=== PATIENT | female | born 1940 | race Caucasian/White ===

== ENCOUNTER → 2017-11-04 | Outpatient (CLI) | payer MEDICARE ==
[~2017-11-04] MED LIST: ALLO300T; ALLO300T PO; ASPI-496 PO; ASPI-515; Benfotiamine PO; CHOL200024 PO; CYAN250013 PO; ESTR0.3T; ESTR0.3T PO; GINGER PO; LEVO25TA2 PO; MAGN250T8 PO; MAGN400C; METANEX; METO25TA35 PO; METO25TA91; OMEG-14 PO; TUMERIC PO; [UNRECOGNIZED DRUG - OTHER] PO
[2017-11-04 13:54] LABS: MICROSCOPIC NOT IND
[2017-11-04 13:59] LABS: CULTURE INDICATED? NO
== END | disposition home or self-care (01) ==
LOC: STAR 12:26
PROVIDERS: ATTEND Orthopaedic Surgery
DX: Z01.818 Encounter for other preprocedural examination (principal); M17.12 Unilateral primary osteoarthritis, left knee
CPT/HCPCS: 81003; 87081; 93005

== ENCOUNTER 2017-11-16 05:22 | Observation (INO) | payer MEDICARE ==
[2017-11-04 13:35] VITALS: BP 130/79
[~2017-11-16] VITALS: Ht 165.1 cm; Wt 74.7 kg
[2017-11-16] MEDS ORDERED: LACTATED RINGERS 1,000 ML IV SCH (06:11)
[2017-11-16] MEDS ORDERED: KETOROLAC 60 MG/2 ML ONE (06:12)
[2017-11-16] MEDS ORDERED: SODIUM CHLORIDE 0.9% 100 ML ONE (06:13)
[2017-11-16] MEDS ORDERED: EPINEPHRINE 1 MG/ML, 1ML ONE (06:13)
[2017-11-16] MEDS ORDERED: ROPIvacaine/PF 0.2%, 20 ML ONE (06:13)
[2017-11-16] MEDS ORDERED: VANCOMYCIN 1,000 MG ONE (06:13)
[2017-11-16] MEDS ORDERED: TRANEXAMIC ACID 100 MG/ML, 10ML ONE (06:13)
[2017-11-16] MEDS ORDERED: LIDOCAINE-MPF 1%, 2ML INFIL ONE (06:30)
[2017-11-16] MEDS ORDERED: MIDAZOLAM 1 MG/ML, 2ML ONE (06:31)
[2017-11-16] MEDS ORDERED: FENTANYL PF 100 MCG/2ML ONE (06:31)
[2017-11-16] MEDS ORDERED: PROPOFOL 50 ML ONE (06:31)
[2017-11-16] MEDS ORDERED: GABAPENTIN 300 MG CAPSULE PO ONE (07:00)
[2017-11-16] MEDS ORDERED: ACETAMINOPHEN 500 MG TABLET PO ONE (07:00)
[2017-11-16] MEDS ORDERED: ONDANSETRON ODT 8 MG PO ONE (07:00)
[2017-11-16] MEDS ORDERED: TAMSULOSIN 0.4 MG CAP.ER.24H PO ONE (07:00)
[2017-11-16] MEDS ORDERED: CEFAZOLIN 1,000 MG ONE (07:01)
[2017-11-16] MEDS ORDERED: DEXAMETHASONE 4 MG/ML, 1ML ONE (07:01)
[2017-11-16] MEDS ORDERED: ZOLPIDEM 5MG TABLET PO PRN (09:00)
[2017-11-16] MEDS ORDERED: ONDANSETRON 2MG/ML, 2ML IV PRN (09:00)
[2017-11-16] MEDS ORDERED: TRANEXAMIC ACID 1,000 MG in SODIUM CHLORIDE 0.9% 100 ML IVPB ONE (09:00)
[2017-11-16] MEDS ORDERED: OXYcodone 5 MG/5 ML ORAL.SOL UDC PO PRN (09:00)
[2017-11-16] MEDS ORDERED: DIPHENHYDRAMINE 50 MG CAPSULE PO PRN (09:00)
[2017-11-16] MEDS ORDERED: OXYcodone IR 5MG TABLET PO PRN (09:00)
[2017-11-16] MEDS ORDERED: PROMETHAZINE 12.5 MG SUPP PR PRN (09:00)
[2017-11-16] MEDS ORDERED: PROMETHAZINE 25 MG/ML, 1ML IV PRN (09:00)
[2017-11-16] MEDS ORDERED: ALUMINUM/MAG/SIMETHICONE 30 ML UDC PO PRN (09:00)
[2017-11-16] MEDS ORDERED: FENTANYL PF 100 MCG/2ML IV PRN (09:00)
[2017-11-16] MEDS ORDERED: HYDROcodone/APAP 5/325 TABLET PO PRN (09:00)
[2017-11-16] MEDS ORDERED: SENNA/DOCUSATE TABLET PO PRN (09:00)
[2017-11-16] MEDS ORDERED: LABETALOL 5MG/ML, 20ML IV PRN (09:00)
[2017-11-16] MEDS ORDERED: PROMETHAZINE 25 MG/ML, 1ML IM PRN (09:00)
[2017-11-16] MEDS ORDERED: BISACODYL 10 MG SUPP PR PRN (09:00)
[2017-11-16] MEDS ORDERED: MAGNESIUM HYDROXIDE 8%, 30ML UDC PO PRN (09:00)
[2017-11-16] MEDS ORDERED: MIDAZOLAM 1 MG/ML, 2ML IV PRN (09:00)
[2017-11-16] MEDS ORDERED: HYDROmorphone 1 MG/ML, 1ML IV PRN ×2 (09:00)
[2017-11-16] MEDS ORDERED: ONDANSETRON 4 MG TABLET PO PRN (09:00)
[2017-11-16] MEDS ORDERED: DIAZEPAM 5 MG TABLET PO PRN (09:00)
[2017-11-16] MEDS ORDERED: MEPERIDINE/PF 25MG/0.5ML IVPush PRN (09:00)
[2017-11-16] MEDS ORDERED: ONDANSETRON 2MG/ML, 2ML ONE (09:42)
[2017-11-16] MEDS ORDERED: ONDANSETRON 2MG/ML, 2ML IVPush ONE (10:00)
[2017-11-16] MEDS: ALLOPURINOL 300 MG TABLET PO SCH (12:30)
[2017-11-16] MEDS: LEVOTHYROXINE 25 MCG TABLET PO SCH ×2 (12:30→20:16)
[2017-11-16] MEDS: METOPROLOL TARTRATE 25 MG TABLET PO SCH ×2 (12:30→20:16)
[2017-11-16] MEDS: DOCUSATE 100 MG CAPSULE PO SCH ×2 (12:36→20:15)
[2017-11-16] MEDS: D5%-0.45% NACL 1,000 ML IV SCH ×2 (12:38→22:30)
[2017-11-16 13:00] VITALS: BP 137/77
[2017-11-16] MEDS: CEFAZOLIN PMX 2GM/50ML 50 ML IVPB SCH ×2 (15:54→22:44)
[2017-11-16] MEDS: ASPIRIN 81 MG TABLET EC PO SCH (18:05)
[2017-11-16 19:50] VITALS: BP 114/65
[2017-11-16] MEDS: ACETAMINOPHEN 650 MG/20.3 ML UDC PO PRN (23:57)
[2017-11-17 00:03] VITALS: BP 116/70
[2017-11-17 03:59] VITALS: BP 118/71
[2017-11-17] MEDS ORDERED: DEXAMETHASONE 4 MG/ML, 1ML IVPush SCH (06:00)
[2017-11-17] MEDS: ASPIRIN 81 MG TABLET EC PO SCH (06:11)
[2017-11-17] MEDS: D5%-0.45% NACL 1,000 ML IV SCH (07:19)
[2017-11-17] MEDS: DOCUSATE 100 MG CAPSULE PO SCH (07:47)
[2017-11-17] MEDS: ALLOPURINOL 300 MG TABLET PO SCH (07:47)
[2017-11-17] MEDS: LEVOTHYROXINE 25 MCG TABLET PO SCH (07:47)
[2017-11-17] MEDS: METOPROLOL TARTRATE 25 MG TABLET PO SCH (07:47)
[2017-11-17 08:34] VITALS: BP 114/65
[2017-11-17] MEDS ORDERED: OXYC5TAB3 PO (08:50)
[2017-11-17] MEDS: ACETAMINOPHEN 650 MG/20.3 ML UDC PO PRN (08:59)
[2017-11-17] MEDS ORDERED: KETOROLAC 30 MG/1 ML IV SCH (09:00)
[2017-11-17 10:39] VITALS: BP 125/68
== END 2017-11-17 11:28 | disposition home or self-care (01) ==
LOC: OUT 05:22 → ORIP 08:44 → 4NOR 10:03 → DCLOUNGE 11-17 11:05
PROVIDERS: ADMIT Orthopaedic Surgery; ATTEND Orthopaedic Surgery
DX: M17.12 Unilateral primary osteoarthritis, left knee (principal); E03.9 Hypothyroidism, unspecified; I10 Essential (primary) hypertension
CPT/HCPCS: 27447; 36415; 73560; 85014; 85018; 96365; 96366; 96375; 97150; 97161; C1713; C1776; G0378; J0171; J0690; J1100; J1885; J2250; J2405; J2704; J2795; J3010; J7120; Q0162; J3370